=== PATIENT | female | born 1970 | race Hispanic/Latino ===

== ENCOUNTER 2018-01-30 06:25 | Day surgery (SDC) | payer BC ==
[2018-01-30 07:02] VITALS: BMI 34.9
[2018-01-30] MEDS ORDERED: Propofol 10 mg/ml Inj (20 ML) ONE (08:03)
[2018-01-30 08:54] VITALS: TEMP 98
[2018-01-30 08:55] VITALS: RESP 18; O2SAT 98
[2018-01-30 08:57] VITALS: BP 100/77; PULSE 70
== END 2018-01-30 09:15 | disposition home or self-care (01) ==
LOC: C.ENDO 06:25
PROVIDERS: ATTEND Internal Medicine Gastroenterology
DX: K21.0 Gastro-esophageal reflux disease with esophagitis (principal); K29.50 Unspecified chronic gastritis without bleeding
CPT/HCPCS: 43239; 84703; 88305; 88312; 88313; 88342; J2001; J2704